=== PATIENT | female | born 1980 | race Hispanic/Latino ===

== ENCOUNTER 2020-04-08 17:48 | Emergency (ER) | payer OTHER ==
[~2020-04-08] VITALS: Ht 160 cm; Wt 95.7 kg
[2020-04-08] MEDS ORDERED: KETOROLAC TROMETHAMINE 30 MG/ML VIAL IV STA (18:08)
[2020-04-08] MEDS ORDERED: ONDANSETRON HCL INJ 2MG/ML 2ML 2 MG/ML VIAL IV STA (18:08)
[2020-04-08] MEDS ORDERED: DIPHENHYDRAMINE HCL INJ 50 MG/ML VIAL IV ONE (18:15)
[2020-04-08] MEDS ORDERED: ACETAMIN/BUTALBITAL/CAFFEINE TAB PO ONE (18:15)
[2020-04-08] MEDS ORDERED: SODIUM CHLORIDE 0.9% 1000ML 1,000 ML IV ONE (18:15)
--- NOTE | 2020-04-08 18:15 | Emergency Department Note ---
History of Present Illnes History of Present Illness Chief Complaint: General Medicine Complaints History of Present Illness This is a 39 year old female STATES SHE HAS HX OF MIGRAINES ABOUT TWICE OF YEAR THAT CAUSE HER TO HAVE INTENSE NAUSEA, VOMITING, AND MIGRAINE THAT WILL NOT GO AWAY. PT STATES HER MIGRAINE EPISODE STARTED THIS AM AT 0600 AM ALONG WITH VOMITING. PT STATES SHE HAS VOMITED 10 TIMES TODAY AND SHE IS VOMITING YELLOW STOMACH ACID. Historian: Patient Arrival Mode: Car Onset (how long ago): hour(s) (9) Location: head Quality: pain, nausea, vomiting Radiation: Reports non-radiation Severity: severe Onset quality: gradual Duration (how long): hour(s) (9) Timing of current episode: constant Progression: unchanged Chronicity: recurrent Context: Denies recent illness, Denies recent surgery, Denies trauma/injury Relieving factors: none Exacerbating factors: none Associated symptoms: Reports nausea/vomiting Treatments prior to arrival: antipyretic Past Medical/Family History Physician Review I have reviewed the patient's past medical and family history. Any updates have been documented here. Past Medical History Recent Fever: No Clinical Suspicion of Infectio: No New/Unexplained Change in Ment: No Past Medical History: Migraines Other Medical History: PCOS Past Surgical History: Cholecysctectomy Social History Smoking Cessation: Never Smoker Counseling Performed: No Alcohol Use: None Any Illegal Drug Use: No Physically hurt or threatened: No Other Any Pre-Existing Lines (PICC,: No Review of Systems Review of Systems Constitutional: Reports no symptoms EENTM: Reports no symptoms Cardiovascular: Reports no symptoms Respiratory: Reports no symptoms Gastrointestinal: Reports nausea, Reports vomiting Genitourinary: Reports no symptoms Musculoskeletal: Reports no symptoms Integumentary: Reports no symptoms Neurological: Reports headache Psychological: Reports no symptoms Endocrine: Reports no symptoms Hematological/Lymphatic: Reports no symptoms Physical Exam Related Data Allergies: Coded Allergies: hydrocodone (Verified Allergy, Unknown, 04/08/20) Triage Vital Signs Vital Signs Date Time Temp Pulse Resp B/P (MAP) Pulse Ox O2 Delivery O2 Flow Rate FiO2 04/08/20 17:54 99.2 91 18 139/93 100 Room Air Vital signs reviewed: Yes Physical Exam CONSTITUTIONAL Constitutional: Present well-developed, Present well-nourished, Present distressed (mild) HENT HENT: Present normocephalic, Present atraumatic, Present oropharynx clear/moist, Present nose normal HENT L/R: Present left ext ear normal, Present right ext ear normal EYES Eyes: Reports PERRL, Reports conjunctivae normal NECK Neck: Present ROM normal PULMONARY Pulmonary: Present effort normal, Present breath sounds normal CARDIOVASCULAR Cardiovascular: Present regular rhythm, Present heart sounds normal, Present capillary refill normal, Present normal rate GASTROINTESTINAL Abdominal: Present soft, Present nontender, Present bowel sounds normal GENITOURINARY Genitourinary: Present exam deferred SKIN Skin: Present warm, Present dry MUSCULOSKELETAL Musculoskeletal: Present ROM normal NEUROLOGICAL Neurological: Present alert, Present oriented x 3, Present no gross motor or sensory deficits PSYCHOLOGICAL Psychological: Present mood/affect normal, Present judgement normal Assessment & Plan Medical Decision Making MDM pt with migraine headache toradol 30 mg iv ordered zofran 4 mg iv ordered ns 1 liter iv bolus ordered benaryl 25 mg iv ordered fioricet 1 po ordered Reassessment Reassessment time: 19:57 Reassessment PT PAIN FREE AT THIS TIME, IN NAD Assessment & Plan Final Impression: (1) Migraine Depart Disposition: HOME, SELF-CARE Last Vital Signs Date Time Temp Pulse Resp B/P (MAP) Pulse Ox O2 Delivery O2 Flow Rate FiO2 04/08/20 17:54 99.2 91 18 139/93 100 Room Air Medications in the ED Ketorolac Tromethamine 30 mg ONCE STAT IV ; Start 04/08/20 at 18:08; Stop 04/08/20 at 18:09; Status UNV Ondansetron HCl 4 mg NOW STAT IV ; Start 04/08/20 at 18:08; Stop 04/08/20 at 18:09; Status UNV Diphenhydramine HCl 25 mg NOW ONCE IV ; Start 04/08/20 at 18:15; Stop 04/08/20 at 18:16; Status UNV Sodium Chloride 1,000 ml @ 999 mls/hr Q1H1M ONCE IV ; Start 04/08/20 at 18:15; Stop 04/08/20 at 19:15 Acetaminophen/ Butalbital/ Caffeine 1 ea ONCE ONCE PO ; Start 04/08/20 at 18:15; Stop 04/08/20 at 18:16; Status UNV ALESSANDRA WADDELL MD Apr 08, 2020 18:15
--- NOTE | 2020-04-08 18:58 | NUR ---
RECEIVED REPORT FROM YA KIRBY; ASSUMED CARE, PT ATTACHED TO RADIATOR CORE TESTER, RESP E/U, SKIN W/D, NAD, WILL CONTINUE TO MONITOR.
--- NOTE | 2020-04-08 19:44 | NUR ---
PATIENT REPORTS SIGNIFICANT IMPROVEMENT IN S/S, STATES "FEELS GOOD ENOUGH TO GO HOME", DENIES ANY C/O, INFORMED ED MD WHOM PRESENTED TO BEDSIDE FOR RE-EVAL AND DISPO/POC.
[2020-04-08 20:09] VITALS: BP 102/63
== END 2020-04-08 20:02 | disposition home or self-care (01) ==
LOC: ER 17:54
DX: G43.909 Migraine, unspecified, not intractable, without status migrainosus (principal); E28.2 Polycystic ovarian syndrome
CPT/HCPCS: 99283; J1200; J1885; J2405; J7030

== ENCOUNTER 2020-06-09 19:01 | Emergency (ER) | payer OTHER ==
[~2020-06-09] VITALS: Ht 160 cm; Wt 97.5 kg
[2020-06-09] MEDS ORDERED: MORPHINE SULFATE INJ 4 MG/ML INJ 1ML IV STA (19:23)
[2020-06-09] MEDS ORDERED: ONDANSETRON HCL INJ 2MG/ML 2ML 2 MG/ML VIAL IV STA (19:23)
[2020-06-09] MEDS ORDERED: ORPHENADRINE CITRATE 30 MG/ML VIAL IM ONE (19:30)
--- OUTSIDE RECORDS SUMMARY | 2020-06-09 19:39 | XMS REPORT | Continuity of Care Document ---
Author Author [facility] Organization [facility] Address [address] [place] [address] Phone Unavailable Care Team Providers Care Violin Repairer Name Role Phone NONSTAFF PCP Unavailable Payers Payer Name Policy Type Policy Number Effective Date Expiration Date Judy Mckinney [facility] [id number] [facility] Problems Condition Name Condition Details Condition Category Status Onset Date Resolution Date Last Treatment Date Treating Clinician Comments Source Migraine headache Problem Active [facility] Allergies, Adverse Reactions, Alerts Allergy Name Allergy Type Status Severity Reaction(s) Onset Date Inacti ve Date Treating Clinician Comments Source Hydrocodone Allergy to substance Active 2020-04-08 00:00:00 [facility] hydrocodone DA Active [place] 2020-01-29 00:00:00 [facility] No Known Allergies DA Active U 2019-12-31 00:00:00 [facility] hydrocodone DA Active [place] 2019-12-31 00:00:00 [facility] Social History Social Habit Start Date Stop Date Quantity Comments Source Sex Assigned At 1980 00:00:00 1980 00:00:00 Female [facility] Medications This patient has no known medications. Vital Signs Vital Name Observation Time Observation Value Comments Source Weight 2020-04-08 17:54:00 211 [lb_av] [facility] BMI (Body Mass Index) 2020-04-08 17:54:00 37.4 kg/m2 [facility] Procedures This patient has no known procedures. Plan of Care Planned Activity Planned Date Details Comments Source Instructions Headache - Migraine (Adult) [facility] Encounters Start Date/Time End Date/Time Encounter Type Admission Type Att[facility] Care Department Encounter ID Source 2020-04-08 17:54:00 2020-04-08 20:02:[address] [facility] [id number] [facility] Results Test Description Test Time Test Comments Results Result Comments Source SURGICAL SPECIMENS 2020-02-04 04:10:00 RUN DATE: 02/04/20 [facility] *LIVE* PAGE 1 RUN TIME: 410 Specimen Inquiry RUN USER: INTERFACE PATIENT: LYNDSEY CALDERON LOC: [id number] U #: [id number] AGE/SX: 39/F ROOM: [facility] RE01/29/20REG DR: Alissa Adrian MD : 82 BED: 1 DIS: 01/31/20 STATUS: DIS IN TLOC: SPEC #: [id number] RECD: 01/31/20 STATUS: SALOME MARQUIS #: [id number] LELO: 01/31/[address] [facility] [address]: Alissa Adrian MD ENTERED: 02/03/20 SP TYPE: SURG SPEC OTHR DR: Self Referred Cyn Chen DOORDERED: GM LEVEL 4 CODES: [id number] - PLACENTA, NOS COPIES TO: Self Referred GustavoCyn Michael DO [address] [facility], [address] [place] [address] Alissa Adrian MD [address] [facility] [place], [place] [id number] PROCEDURES: GM LEVEL 4 (Incomplete) TISSUES: 1. PLACENTA, NOS - Placenta, 3rd trimester. 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 GROSS AND MICROSCOPIC GROSS EXAMINATION: Received in formalin labeled placenta is a 415 g 15 x 15 x 1.8 cm placenta. The surface is bluegray with tortuous vessels on the surface. The maternal surface is intact with focal adherent hemorrhage. The centrally inserted 3 vessel umbilical cord measures 0.4 cm in length 1 cm in diameter. The parenchyma contains a 1.7 cm area of infarction, the remaind er is unremarkable. SECTION CODE: (A) Membranes (B) umbilical cord (C)-(E) placental parenchyma. MICROSCOPIC EXAMINATION: Sections of the umbilical cord reveal three vessels without significant inflammation. The membranes are unremarkable. The surface of the placenta does not show a significant inflammatory infiltrate. Maturation is appropriate for gestational age. CONTINUED ON NEXT PAGE RUN DATE: 02/04/20 [facility] *LIVE* PAGE 2 RUN TIME: 410 Specimen Inquiry RUN USER: INTERFACE SPEC #: [id number] PATIENT: LYNDSEY CALDERON #[id number] (Continued) GROSS AND MICROSCOPIC (Continued) There is a focus of infarction present. There are small calcifications within the parenchyma. The underlying maternal decidua beneath the placenta contains a mixed inflammatory infiltrate. POST- OP DIAGNOSIS , 37.2 weeks, gestational diabetes, induced hypertension, spontaneous vaginal delivery PRE-OP DIAGNOSIS , 37.2 weeks, gestational diabetes, induced hypertension, spontaneous vaginal delivery Signed SIGNATURE ON FILE LiamjaymeKory DO 02/04/20 0410 END OF REPORT CBC W/AUTO DIFF 2020-01-31 07:42:00 Test Item WHITE BLOOD CELL (test code = WBC) 9.51 x10 3/uL 4.5-11.0 N RED BLOOD CELL (test code = RBC) 3.95 x10 6/uL 3.54-5.02 N HEMOGLOBIN (test code = HGB) 11.0 g/dL 11.0-15.0 N HEMATOCRIT (test code = HCT) 35.1 % 33.0-45.0 N MEAN CELL VOLUME (test code = MCV) 88.9 fL 81.0-99.0 N MEAN CELL HGB (test code = MCH) 27.8 pg 27.0-33.0 N MEAN CELL HGB CONCETRATION (test code = MCHC) 31.3 g/dL 33.0-37. 0 L RED CELL DISTRIBUTION WIDTH CV (test code = RDW) 13.8 % 11.5- 14.5 N RED CELL DISTRIBUTION WIDTH SD (test code = RDW-SD) 44.5 fL 37 .0-54.0 N PLATELET COUNT (test code = PLT) 165 x10 3/uL 150-400 N MEAN PLATELET VOLUME (test code = MPV) 12.4 fL 7.0-9.0 H NEUTROPHIL % (test code = NT%) 62.8 % 56.0-77.0 N IMMATURE GRANULOCYTE % (test code = IG%) 0.4 % 0.0-2.0 N LYMPHOCYTE % (test code = LY%) 30.1 % 14.0-32.0 N MONOCYTE % (test code = MO%) 4.7 % 4.8-9.0 L EOSINOPHIL % (test code = EO%) 1.7 % 0.3-3.7 N BASOPHIL % (test code = BA%) 0.3 % 0.0-2.0 N NUCLEATED RBC % (test code = NRBC%) 0.0 % 0-0 N NEUTROPHIL # (test code = NT#) 5.97 x10 3/uL 2.0-7.6 N IMMATURE GRANULOCYTE # (test code = IG#) 0.04 x10 3/uL 0.00-0.03 H LYMPHOCYTE # (test code = LY#) 2.86 x10 3/uL 1.0-3.8 N MONOCYTE # (test code = MO#) 0.45 x10 3/uL 0.1-0.8 N EOSINOPHIL # (test code = EO#) 0.16 x10 3/uL 0.0-0.2 N BASOPHIL # (test code = BA#) 0.03 x10 3/uL 0.0-0.2 N NUCLEATED RBC # (test code = NRBC#) 0.00 x10 3/uL 0.0-0.1 N MANUAL DIFF REQUIRED (test code = MDIFF) NO RAPID PLASMA [id number] 11:27:00* Test Item Value Reference Range Interpretation Comments RAPID PLASMA REAGIN (test code = RPR) NONREACTIVE NONREACTIVE AG HEPATITIS B [id number] 11:27:00* Test Item Value Reference Range Interpretation Comments AG HEPATITIS B SURFACE (test code = HBSAG) NON REACTIVE INDEX NonRe active AB HIV 1 11:27:00* Test Item Value Reference Range Interpretation Comments AB HIV 1 2 (test code = [id number]) NONREACTIVE INDEX NONREACTIVE [id number] 01:45:00* Test Item Value Reference Range Interpretation Comments GLUBED (test code = GLUBED) 93 MG/DL 70-110 N Performed by certified back up machine operator at [facility] RAPID PLASMA [id number] 20:12:00* Test Item Value Reference Range Interpretation Comments RAPID PLASMA REAGIN (test code = RPR) NONREACTIVE AG HEPATITIS B [id number] 20:12:00* Test Item Value Reference Range Interpretation Comments AG HEPATITIS B SURFACE (test code = HBSAG) NON REACTIVE INDEX NonRe active AB HIV 1 20:12:00* Test Item Value Reference Range Interpretation Comments AB HIV 1 2 (test code = [id number]) NONREACTIVE INDEX NONREACTIVE RAPID PLASMA [id number] 14:48:00* Test Item Value Reference Range Interpretation Comments RAPID PLASMA REAGIN (test code = RPR) NONREACTIVE AG HEPATITIS B [id number] 14:48:00* Test Item Value Reference Range Interpretation Comments AG HEPATITIS B SURFACE (test code = HBSAG) NON REACTIVE INDEX NonRe active AB HIV 1 14:48:00* Test Item Value Reference Range Interpretation Comments AB HIV 1 2 (test code = [id number]) INDEX NONREACTIVE Coronavirus 2019 nCoV [id number] 14:24:00* Test Item Value Reference Range Interpretation Comments Coronavirus 2019 nCoV Bedside (test code = COVNONPUIBED) Negative Negative Negative results should be treated as presumptive and, ifinconsistent with clinical signs and symptoms or necessaryfor patient management, should be tested with an alternativemolecular assay. Negative results do not preclude [id number] and should not be used as the sole basis forpatient management decisions. Negative results should beconsidered in the context of a patient's recent exposures,history, presence of clinical signs and symptoms consistentwith COVID-19. Acknowledged? YESCOMPREHENSIVE METABOLIC [id number] 12:06:00* Test Item Value Reference Range Interpretation Comments SODIUM (test code = NA) 139 mEq/L 134-147 N POTASSIUM (test code = K) 3.8 mEq/L 3.4-5.0 N CHLORIDE (test code = CL) 108 mEq/L 100-108 N CARBON DIOXIDE (test code = CO2) 25 mEq/L 21-33 N ANION GAP (test code = GAP) 10 0-20 N GLUCOSE (test code = GLU) 76 mg/dL 70-110 N BLOOD UREA NITROGEN (test code = BUN) 6 mg/dL 7-18 L GLOMERULAR FILTRATION RATE (test code = GFR) 112.5 105-110 H Units of measure = ml/min/1.73 m2 CREATININE (test code = CREAT) 0.6 mg/dL 0.6-1.3 N TOTAL PROTEIN (test code = PROT) 6.6 g/dL 6.4-8.2 N ALBUMIN (test code = ALB) 2.70 g/dL 3.4-5.0 L CALCIUM (test code = CA) 8.0 mg/dL 8.0-10.5 N BILIRUBIN TOTAL (test code = BILT) 0.4 MG/DL <1.5 N SGOT/AST (test code = AST) 15 IUnit/L 15-37 N SGPT/ALT (test code = ALT) 16 IUnit/L 15-65 N ALKALINE PHOSPHATASE TOTAL (test code = ALKP) 139 IUnit/L 20-125 H UA RFLX MICR CULT IF [id number] 11:37:00* Test Item Value Reference Range Interpretation Comments UA COLOR (test code = COLU) YELLOW YEL/STRAW UA APPEARANCE (test code = APPU) CLOUDY CLEAR A UA GLUCOSE DIPSTICK (test code = DGLUU) NEGATIVE NEGATIVE UA BILIRUBIN DIPSTICK (test code = BILU) NEGATIVE NEGATIVE UA KETONE DIPSTICK (test code = KETU) NEGATIVE NEGATIVE UA SPECIFIC GRAVITY (test code = SGU) 1.013 1.005-1.030 N UA BLOOD DIPSTICK (test code = ROBIN) NEGATIVE NEGATIVE UA PH DIPSTICK (test code = CHARLENE) 6.0 5.0-7.0 N UA PROTEIN DIPSTICK (test code = PROU) NEGATIVE NEGATIVE UA UROBILINIOGEN DIPSTICK (test code = URO) 0.2 mg/dL 0.2-1.0 UA NITRITE DIPSTICK (test code = MELINDA) NEGATIVE NEGATIVE UA LEUKOCYTE ESTERASE DIPSTICK (test code = LEUU) 2+ NEGA TIVE A UA WBC (test code = WBCU) 10-20 WBC/HPF 0-3 A UA RBC (test code = RBCU) 0-3 RBC/HPF 0-3 UA WBC NO REFLEX (test code = WBCUCL) 10-20 WBC/HPF 0-3 A UA BACTERIA (test code = BACU) TRACE /HPF NONE SEEN UA SQUAMOUS CELLS (test code = SQU) 6-10 /HPF NONE SEEN A UA MUCUS (test code = MUCU) TRACE /LPF NONE SEEN Indication for culture: Dysuria/FrequencySpecimen Description: CLEAN CATCH CBC W/AUTO [id number] 11:36:00* Test Item Value Reference Range Interpretation Comments WHITE BLOOD CELL (test code = WBC) 8.11 x10 3/uL 4.5-11.0 N RED BLOOD CELL (test code = RBC) 4.50 x10 6/uL 3.54-5.02 N HEMOGLOBIN (test code = HGB) 12.7 g/dL 11.0-15.0 N HEMATOCRIT (test code = HCT) 39.4 % 33.0-45.0 N MEAN CELL VOLUME (test code = MCV) 87.6 fL 81.0-99.0 N MEAN CELL HGB (test code = MCH) 28.2 pg 27.0-33.0 N MEAN CELL HGB CONCETRATION (test code = MCHC) 32.2 g/dL 33.0-37. 0 L RED CELL DISTRIBUTION WIDTH CV (test code = RDW) 13.4 % 11.5- 14.5 N RED CELL DISTRIBUTION WIDTH SD (test code = RDW-SD) 42.9 fL 37 .0-54.0 N PLATELET COUNT (test code = PLT) 210 x10 3/uL 150-400 N MEAN PLATELET VOLUME (test code = MPV) 11.7 fL 7.0-9.0 H NEUTROPHIL % (test code = NT%) 65.6 % 56.0-77.0 N IMMATURE GRANULOCYTE % (test code = IG%) 0.2 % 0.0-2.0 N LYMPHOCYTE % (test code = LY%) 27.4 % 14.0-32.0 N MONOCYTE % (test code = MO%) 5.7 % 4.8-9.0 N EOSINOPHIL % (test code = EO%) 0.9 % 0.3-3.7 N BASOPHIL % (test code = BA%) 0.2 % 0.0-2.0 N NUCLEATED RBC % (test code = NRBC%) 0.0 % 0-0 N NEUTROPHIL # (test code = NT#) 5.32 x10 3/uL 2.0-7.6 N IMMATURE GRANULOCYTE # (test code = IG#) 0.02 x10 3/uL 0.00-0.03 N LYMPHOCYTE # (test code = LY#) 2.22 x10 3/uL 1.0-3.8 N MONOCYTE # (test code = MO#) 0.46 x10 3/uL 0.1-0.8 N EOSINOPHIL # (test code = EO#) 0.07 x10 3/uL 0.0-0.2 N BASOPHIL # (test code = BA#) 0.02 x10 3/uL 0.0-0.2 N NUCLEATED RBC # (test code = NRBC#) 0.00 x10 3/uL 0.0-0.1 N MANUAL DIFF REQUIRED (test code = MDIFF) NO [id number] 15:28:00* Test Item Value Reference Range Interpretation Comments FIBRONECTIN (test code = FFN) NEGATIVE NEGATIVE URINALYSIS [id number] 14:30:00* Test Item Value Reference Range Interpretation Comments UA COLOR (test code = COLU) TAYO YEL/STRAW A UA APPEARANCE (test code = APPU) CLOUDY CLEAR A UA GLUCOSE DIPSTICK (test code = DGLUU) NEGATIVE NEGATIVE UA BILIRUBIN DIPSTICK (test code = BILU) NEGATIVE NEGATIVE UA KETONE DIPSTICK (test code = KETU) 2+ NEGATIVE A UA SPECIFIC GRAVITY (test code = SGU) 1.025 1.005-1.030 N UA BLOOD DIPSTICK (test code = ROBIN) NEGATIVE NEGATIVE UA PH DIPSTICK (test code = CHARLENE) 6.0 5.0-7.0 N UA PROTEIN DIPSTICK (test code = PROU) 1+ NEGATIVE A UA UROBILINIOGEN DIPSTICK (test code = URO) 0.2 mg/dL 0.2-1.0 UA NITRITE DIPSTICK (test code = MELINDA) NEGATIVE NEGATIVE UA LEUKOCYTE ESTERASE DIPSTICK (test code = LEUU) 3+ NEGA TIVE A UA RBC (test code = RBCU) 0-3 RBC/HPF 0-3 UA WBC NO REFLEX (test code = WBCUCL) >50 WBC/HPF 0-3 A UA BACTERIA (test code = BACU) 2+ /HPF NONE SEEN A UA SQUAMOUS CELLS (test code = SQU) 36-50 /HPF NONE SEEN A UA HYALINE CAST (test code = HYALU) 6-10 /LPF NONE SEEN UA MUCUS (test code = MUCU) 3+ /LPF NONE SEEN A Indication for culture: Dysuria/FrequencySpecimen Description: CLEAN CATCH COMPREHENSIVE METABOLIC [id number] 14:09:00* Test Item Value Reference Range Interpretation Comments SODIUM (test code = NA) 137 mEq/L 134-147 N POTASSIUM (test code = K) 3.7 mEq/L 3.4-5.0 N CHLORIDE (test code = CL) 108 mEq/L 100-108 N CARBON DIOXIDE (test code = CO2) 22 mEq/L 21-33 N ANION GAP (test code = GAP) 11 0-20 N GLUCOSE (test code = GLU) 83 mg/dL 70-110 N BLOOD UREA NITROGEN (test code = BUN) 6 mg/dL 7-18 L GLOMERULAR FILTRATION RATE (test code = GFR) 138.8 105-110 H Units of measure = ml/min/1.73 m2 CREATININE (test code = CREAT) 0.5 mg/dL 0.6-1.3 L TOTAL PROTEIN (test code = PROT) 7.2 g/dL 6.4-8.2 N ALBUMIN (test code = ALB) 2.80 g/dL 3.4-5.0 L CALCIUM (test code = CA) 8.4 mg/dL 8.0-10.5 N BILIRUBIN TOTAL (test code = BILT) 0.5 MG/DL <1.5 N SGOT/AST (test code = AST) 14 IUnit/L 15-37 L SGPT/ALT (test code = ALT) 17 IUnit/L 15-65 N ALKALINE PHOSPHATASE TOTAL (test code = ALKP) 106 IUnit/L 20-125 N COMPREHENSIVE METABOLIC [id number] 14:03:00* Test Item Value Reference Range Interpretation Comments SODIUM (test code = NA) 137 mEq/L 134-147 N POTASSIUM (test code = K) 3.7 mEq/L 3.4-5.0 N CHLORIDE (test code = CL) 108 mEq/L 100-108 N CARBON DIOXIDE (test code = CO2) 22 mEq/L 21-33 N ANION GAP (test code = GAP) 11 0-20 N GLUCOSE (test code = GLU) 83 mg/dL 70-110 N BLOOD UREA NITROGEN (test code = BUN) 6 mg/dL 7-18 L GLOMERULAR FILTRATION RATE (test code = GFR) 105-110 CREATININE (test code = CREAT) mg/dL 0.6-1.3 TOTAL PROTEIN (test code = PROT) g/dL 6.4-8.2 ALBUMIN (test code = ALB) g/dL 3.4-5.0 CALCIUM (test code = CA) 8.4 mg/dL 8.0-10.5 N BILIRUBIN TOTAL (test code = BILT) MG/DL <1.5 SGOT/AST (test code = AST) IUnit/L 15-37 SGPT/ALT (test code = ALT) IUnit/L 15-65 ALKALINE PHOSPHATASE TOTAL (test code = ALKP) IUnit/L 20-125 CBC W/AUTO [id number] 13:54:00* Test Item Value Reference Range Interpretation Comments WHITE BLOOD CELL (test code = WBC) 11.00 x10 3/uL 4.5-11.0 N RED BLOOD CELL (test code = RBC) 4.56 x10 6/uL 3.54-5.02 N HEMOGLOBIN (test code = HGB) 13.1 g/dL 11.0-15.0 N HEMATOCRIT (test code = HCT) 40.2 % 33.0-45.0 N MEAN CELL VOLUME (test code = MCV) 88.2 fL 81.0-99.0 N MEAN CELL HGB (test code = MCH) 28.7 pg 27.0-33.0 N MEAN CELL HGB CONCETRATION (test code = MCHC) 32.6 g/dL 33.0-37. 0 L RED CELL DISTRIBUTION WIDTH CV (test code = RDW) 13.1 % 11.5- 14.5 N RED CELL DISTRIBUTION WIDTH SD (test code = RDW-SD) 42.5 fL 37 .0-54.0 N PLATELET COUNT (test code = PLT) 217 x10 3/uL 150-400 N MEAN PLATELET VOLUME (test code = MPV) 11.1 fL 7.0-9.0 H NEUTROPHIL % (test code = NT%) 86.3 % 56.0-77.0 H IMMATURE GRANULOCYTE % (test code = IG%) 0.5 % 0.0-2.0 N LYMPHOCYTE % (test code = LY%) 10.3 % 14.0-32.0 L MONOCYTE % (test code = MO%) 2.7 % 4.8-9.0 L EOSINOPHIL % (test code = EO%) 0.1 % 0.3-3.7 L BASOPHIL % (test code = BA%) 0.1 % 0.0-2.0 N NUCLEATED RBC % (test code = NRBC%) 0.0 % 0-0 N NEUTROPHIL # (test code = NT#) 9.49 x10 3/uL 2.0-7.6 H IMMATURE GRANULOCYTE # (test code = IG#) 0.06 x10 3/uL 0.00-0.03 H LYMPHOCYTE # (test code = LY#) 1.13 x10 3/uL 1.0-3.8 N MONOCYTE # (test code = MO#) 0.30 x10 3/uL 0.1-0.8 N EOSINOPHIL # (test code = EO#) 0.01 x10 3/uL 0.0-0.2 N BASOPHIL # (test code = BA#) 0.01 x10 3/uL 0.0-0.2 N NUCLEATED RBC # (test code = NRBC#) 0.00 x10 3/uL 0.0-0.1 N MANUAL DIFF REQUIRED (test code = MDIFF) NO
[2020-06-09] MEDS ORDERED: PANTOPRAZOLE 40 MG 10ML VIAL IV STA (20:33)
--- NOTE | 2020-06-09 20:33 | Emergency Department Note ---
History of Present Illnes History of Present Illness Chief Complaint: Back Pain History of Present Illness This is a 40 year old female states she turned too quickly at approx 1700 at felt a popping sensation to lower back. Patient states she took 600 motrin oral without relief. EMS called for lower back pain and administered 30 mg IV toradol.. Arrival Mode: [facility] EMS Treatment DANCE STUDIO MANAGER: IV Additional Treatment DANCE STUDIO MANAGER: toradol 30mg IV Onset (how long ago): hour(s) (2) Location: lower back Quality: pain Radiation: Reports non-radiation Severity: severe Onset quality: sudden Duration (how long): hour(s) (2) Timing of current episode: constant Progression: unchanged Chronicity: new Context: Reports trauma/injury (as above) Relieving factors: none Exacerbating factors: movement Associated symptoms: Reports denies other symptoms Treatments prior to arrival: other (toradol 30 mg iv by ems) Past Medical/Family History Physician Review I have reviewed the patient's past medical and family history. Any updates have been documented here. Past Medical History Recent Fever: No Clinical Suspicion of Infectio: No New/Unexplained Change in Ment: No Past Medical History: Migraines Other Medical History: PCOS Past Surgical History: Cholecysctectomy Social History Smoking Cessation: Never Smoker Alcohol Use: Occasional Other Any Pre-Existing Lines (PICC,: No Review of Systems Review of Systems Constitutional: Reports no symptoms EENTM: Reports no symptoms Cardiovascular: Reports no symptoms Respiratory: Reports no symptoms Gastrointestinal: Reports no symptoms Genitourinary: Reports no symptoms Musculoskeletal: Reports as per HPI Integumentary: Reports no symptoms Neurological: Reports no symptoms Psychological: Reports no symptoms Endocrine: Reports no symptoms Hematological/Lymphatic: Reports no symptoms Physical Exam Related Data Allergies: Coded Allergies: hydrocodone (Verified Allergy, Unknown, 04/08/20) Triage Vital Signs Vital Signs Date Time Temp Pulse Resp B/P (MAP) Pulse Ox O2 Delivery O2 Flow Rate FiO2 06/09/20 19:02 98.9 75 20 147/84 100 Room Air Vital signs reviewed: Yes Physical Exam CONSTITUTIONAL Constitutional: Present well-developed, Present well-nourished HENT HENT: Present normocephalic, Present atraumatic, Present oropharynx clear/moist, Present nose normal HENT L/R: Present left ext ear normal, Present right ext ear normal EYES Eyes: Reports PERRL, Reports conjunctivae normal NECK Neck: Present ROM normal PULMONARY Pulmonary: Present effort normal, Present breath sounds normal CARDIOVASCULAR Cardiovascular: Present regular rhythm, Present heart sounds normal, Present capillary refill normal, Present normal rate GASTROINTESTINAL Abdominal: Present soft, Present nontender, Present bowel sounds normal GENITOURINARY Genitourinary: Present exam deferred SKIN Skin: Present warm, Present dry MUSCULOSKELETAL Musculoskeletal: Present other (TENDERNESS TO SOFT TISSUES LOWER BACK) NEUROLOGICAL Neurological: Present alert, Present oriented x 3, Present no gross motor or sensory deficits PSYCHOLOGICAL Psychological: Present mood/affect normal, Present judgement normal Results Laboratory Laboratory Laboratory Tests Test 06/09/20 19:27 Human Chorionic Gonadotropin, Qual Negative (NEGATIVE) Lab results reviewed: Yes Imaging Imaging results reviewed: Yes Impressions Procedure: [id number] DX/LUMBAR 3 VIEW Exam Date: 06/09/20 Exam Time: 2099 REPORT STATUS: Signed Lumbar Spine Radiographs: 3 views HISTORY: Low back pain. COMPARISON: None available. DISCUSSION: Some of the osseous structures are partially obscured by stool and bowel gas. There are five non-rib bearing lumbar vertebral bodies. The alignment of the spine is within normal limits. No displaced fracture or compression deformity is identified. Disc Spaces: The disc spaces are well maintained. Facets: Mild facet arthrosis at the lower lumbar spine. No dislocation. Others: Status post cholecystectomy. Nonobstructive bowel gas pattern partially imaged abdomen. IMPRESSION: Mild facet arthrosis of the lower lumbar spine. No acute abnormality of the lumbar spine. Signed by: Brittni Saldaña MD on 06/09/2020 9:23 PM Dictated By: BRITTNI SALDAÑA MD 22 Transcribed By: [email or web address] on 06/09/202122 COPY TO: ALESSANDRA WADDELL MD~ Procedures 12 Lead ECG Interpretation ECG Interpretation : ECG: ECG 1 Transformation Manager: Interpreted by ED physician Date: Jun 09, 2020 Time: 20:35 Rhythm: sinus rhythm Rate: normal BPM: 67 QRS axis: normal ST segments normal: Yes T waves normal: Yes Other findings: prolonged QTc interval Clinical Impression: non-specific ECG Assessment & Plan Medical Decision Making MDM PT WITH BACK PAIN L SPINE XRAY ORDERED TO EVAL FOR FRACTURES Reassessment Reassessment time: 22:01 Reassessment PT MUCH BETTER AFTER BEING MEDICATED FOR PAIN Assessment & Plan Final Impression: (1) Lumbar strain Depart Disposition: HOME, SELF-CARE Last Vital Signs Date Time Temp Pulse Resp B/P (MAP) Pulse Ox O2 Delivery O2 Flow Rate FiO2 06/09/20 20:10 70 17 114/53 100 Room Air 06/09/20 19:02 98.9 Medications in the ED Orphenadrine Citrate 60 mg ONCE ONCE IM Last administered on 06/09/20at 19:50; Admin Dose 60 MG; Start 06/09/20 at 19:30; Stop 06/09/20 at 19:31; Status DC Morphine Sulfate 4 mg NOW STAT IV Last administered on 06/09/20at 19:45; Admin Dose 4 MG; Start 06/09/20 at 19:23; Stop 06/09/20 at 19:26; Status DC Ondansetron HCl 4 mg NOW STAT IV Last administered on 06/09/20at 19:45; Admin Dose 4 MG; Start 06/09/20 at 19:23; Stop 06/09/20 at 19:26; Status DC ALESSANDRA WADDELL MD Jun 09, 2020 20:33
[2020-06-09] MEDS ORDERED: DICYCLOMINE HCL 20 MG/2 ML VIAL IM ONE ×2 (20:39→20:45)
[2020-06-09] MEDS ORDERED: PANTOPRAZOLE 40 MG 10ML VIAL ONE (20:39)
--- NOTE | 2020-06-09 21:26 | Diagnostic Imaging Report ---
Lumbar Spine Radiographs: 3 views HISTORY: Low back pain. COMPARISON: None available. DISCUSSION: Some of the osseous structures are partially obscured by stool and bowel gas. There are five non-rib bearing lumbar vertebral bodies. The alignment of the spine is within normal limits. No displaced fracture or compression deformity is identified. Disc Spaces: The disc spaces are well maintained. Facets: Mild facet arthrosis at the lower lumbar spine. No dislocation. Others: Status post cholecystectomy. Nonobstructive bowel gas pattern partially imaged abdomen. IMPRESSION: Mild facet arthrosis of the lower lumbar spine. No acute abnormality of the lumbar spine. Signed by: Brittni Rey MD on 06/09/2020 9:23 PM
[2020-06-09 23:52] VITALS: BP 105/53
== END 2020-06-09 23:09 | disposition home or self-care (01) ==
LOC: ER 19:14
DX: S39.012A Strain of muscle, fascia and tendon of lower back, initial encounter (principal); X50.1XXA Overexertion from prolonged static or awkward postures, initial encounter; Y92.008 Other place in unspecified non-institutional (private) residence as the place of occurrence of the external cause; E28.2 Polycystic ovarian syndrome
CPT/HCPCS: 36415; 72100; 84702; 93005; 96374; 96375; 99284; J0500; J2270; J2360; J2405